=== PATIENT | male | born 1975 ===

== ENCOUNTER 2024-06-24 13:05 | Emergency (ER) | payer OTHER ==
[~2024-06-24] VITALS: Ht 167.6 cm; Wt 68.2 kg
[2024-06-24 13:37] VITALS: TEMP 97.8
[2024-06-24] MEDS ORDERED: DOLU50TA PO (13:44)
[2024-06-24] MEDS ORDERED: LEVE250T81 PO (13:44)
[2024-06-24] MEDS ORDERED: LAMI150T33 PO (13:44)
[2024-06-24] MEDS ORDERED: TENO300 PO (13:44)
[2024-06-24] MEDS ORDERED: VALP250C48 PO (13:44)
[2024-06-24] MEDS ORDERED: DOXY-354 PO (13:44)
[2024-06-24] MEDS: DOXYCYCLINE HYCLATE 100 MG TABLET PO ONE (14:16)
[2024-06-24] MEDS: IBUPROFEN 600 MG TABLET PO ONE (14:16)
[2024-06-24 15:18] VITALS: BP 110/72; PULSE 76; RESP 18; O2SAT 99
== END 2024-06-24 16:52 | disposition home or self-care (01) ==
LOC: EMS 13:05
DX: L02.411 Cutaneous abscess of right axilla (principal); Z79.624 Long term (current) use of inhibitors of nucleotide synthesis; Z79.899 Other long term (current) drug therapy
CPT/HCPCS: 99283